=== PATIENT | female | born 1965 | race Caucasian/White ===

== ENCOUNTER 2016-09-03 09:16 | Day surgery (SDC) | payer OTHER ==
[~2016-09-03] VITALS: Ht 167.6 cm; Wt 86.8 kg
[~2016-09-03 09:16] MED LIST: SODIUM CHLORIDE 0.9% 1,000 ML IV ONE
[2016-09-03] MEDS ORDERED: SODIUM CHLORIDE 0.9% 1,000 ML IV ONE (09:39)
[2016-09-03] MEDS ORDERED: LIDOCAINE HCL/PF 1% 30 ML VIAL ONE ×2 (10:21→11:01)
[2016-09-03] MEDS ORDERED: DULO30CA2 PO (10:34)
[2016-09-03] MEDS ORDERED: IOHEXOL 300 MG/ML 10 ML VIAL ONE (11:03)
[2016-09-03 11:06] VITALS: BP 151/80
[2016-09-03 11:21] VITALS: BP 140/76
[2016-09-03] MEDS ORDERED: IOHEXOL 300 MG/ML 10 ML VIAL IARTIC ONE (12:15)
[2016-09-03] MEDS ORDERED: LIDOCAINE HCL/PF 1% 30 ML VIAL INJ ONE (12:15)
== END 2016-09-03 12:05 | disposition home or self-care (01) ==
LOC: SDS 09:16
PROVIDERS: ATTEND Physical Medicine & Rehabilitation Pain Medicine
DX: M54.16 Radiculopathy, lumbar region (principal); M54.9 Dorsalgia, unspecified; M54.30 Sciatica, unspecified side; Z98.890 Other specified postprocedural states; Z98.42 Cataract extraction status, left eye
CPT/HCPCS: 64483; J1040; J3490; J7030; Q9967